=== PATIENT | male | born 1950 | race Caucasian/White ===

== ENCOUNTER 2017-03-27 18:29 | Emergency (ER) | payer MEDICARE ==
--- NOTE | 2017-03-27 19:16 | ER PHYSICIAN DOCUMENTATION ---
Physician Documentation [facility] Name:Gisela Calloway Age:67 yrs Sex:Male :1950 Arrival Date:03/27/2017 Time:18:29 Bed6 Private MD: Joby Helms Disposition: 03/27/17 18:58 Discharged to Home/Self Care. Impression: Constipation. - Condition is Good. - Discharge Instructions: Constipation - FECAL IMPACTION, Treated. - Prescriptions for Colace 100 mg Oral Tablet - take 1 tablet by ORAL route every 12 hours; 14 tablet. - Medical Reconciliation form form. - Follow up: Private Physician; When: As needed; Reason: Recheck today's complaints. - Problem is new. - Symptoms have improved. HPI: 03/27 19:16 This 67 yrs old Male presents to ER via Private Vehicle with complaints of be Constipation. 19:16 The patient presents with abdominal distention that is diffuse. small hard BM's past 24 be hrs. Onset: The symptoms/episode began/occurred gradually, yesterday. The symptoms do not radiate. Associated signs and symptoms: Pertinent negatives: chest pain, nausea, vomiting. This patient does not have any risk factors related to abdominal pain. Historical: - Allergies: PENICILLINS; - Home Meds: 1. None - PMHx: None; - PSHx: None; - Tetanus: unknown. - Ebola Screening: : Patient negative for fever greater than or equal to 101.5 degrees Fahrenheit, and additional compatible Ebola Virus Disease symptoms. Patient denies exposure to infectious person. Patient denies travel to an Ebola-affected area in the 21 days before illness onset. No symptoms or risks identified at this time. . - Immunization history: Flu Vaccine unknown. - Social history: Smoking status: Patient uses tobacco products, light tobacco smoker. ROS: 19:16 Abdomen/GI: Positive for constipation, abdominal distension, Negative for abdominal be pain, nausea, vomiting, diarrhea. 19:16 All other systems are negative. Exam: 19:16 Abdomen/GI: Palpation: abdomen is soft and non-tender, in all quadrants, mass, that is be hard, of the left lower quadrant, Rectal exam: Prostate: normal, rectal tone normal, fecal impaction, that is moderate, disimpacted w/o difficulty. Vital Signs: 18:37 BP 151 / 81; Pulse 130; Resp 18; Temp 98.8(O); Pulse Ox 95% ; Weight 92.99 kg (R); tg Height 5 ft. 7 in. (170.18 cm) (R); Pain 6/10; 18:37 Body Mass Index 32.11 (92.99 kg, 170.18 cm) tg MDM: 18:32 Patient medically screened. wi 18:58 Patient medically screened. wi 19:14 Differential diagnosis: Irritable bowel syndrome, constipation. Data reviewed: vital be signs, nurses notes, old medical records, digitally disimpacted w/o difficulty; patient tolerated well, and as a result, I will discharge patient, colace as needed, push water and an apple daily. 19:21 ECG:. be 20:07 EKG attached lp 03/27 20:06 Order name: 12-lead EKG; Complete Time: 20:06 tg EC:21 Rate is 123 beats/min. Rhythm is regular, Sinus tachycardia with No ectopy. QRS Moore is be Normal. TX interval is normal. QRS interval is normal. QT interval is normal. No Q waves. T waves are Normal. No ST changes noted. Clinical impression: Sinus tachycardia and No evidence of ischemia. Interpreted by me. Dispensed Medications: No medications were administered Signatures: Wellington Nvearez RN RN Amanda Alvarado RN RN Carroll Carrero MD MD wi Joby Dailey MD MD be
--- NOTE | 2017-03-27 19:16 | ER NURSING DOCUMENTATION ---
Nurse's Notes [facility] Name:Gisela Calloway Age:67 yrs Sex:Male :1950 Arrival Date:03/27/2017 Time:18:29 Bed6 Private MD: Diagnosis:Constipation Presentation: 03/27 18:33 Acuity: YANIRA 4 tg 18:34 Presenting complaint: Patient states: Constipation- last BM yesterday, unable to go tg today despite urge since 1PM. Transition of care: patient was not received from another setting of care. 18:34 Method Of Arrival: Private Vehicle tg Triage Assessment: 18:43 General: Appears well developed, well nourished, well groomed, Behavior is anxious. tg 18:53 General: Appears Behavior is anxious. Pain: Denies pain. Neuro: Level of Consciousness tg is awake, alert. Cardiovascular: Capillary refill < 3 seconds. Respiratory: Respiratory effort is even, unlabored. GI: Reports constipation. Derm: Skin is clammy, Skin is pale. Historical: - Allergies: PENICILLINS; - Home Meds: 1. None - PMHx: None; - PSHx: None; - Tetanus: unknown. - Ebola Screening: : Patient negative for fever greater than or equal to 101.5 degrees Fahrenheit, and additional compatible Ebola Virus Disease symptoms. Patient denies exposure to infectious person. Patient denies travel to an Ebola-affected area in the 21 days before illness onset. No symptoms or risks identified at this time. . - Immunization history: Flu Vaccine unknown. - Social history: Smoking status: Patient uses tobacco products, light tobacco smoker. Screenin:41 Infectious Disease Risk Unable to Obtain. Abuse screen: Denies threats or abuse. Denies tg injuries from another. Nutritional screening: No deficits noted. Assessment: 18:55 Reassessment: Pt reports that he began to feel very anxious once he made the decision tg to come to the ED. Does not usually feel anxious, but has had a lot of difficult times at hospitals (with his mother as the patient, not himself as the patient). . Vital Signs: 18:37 BP 151 / 81; Pulse 130; Resp 18; Temp 98.8(O); Pulse Ox 95% ; Weight 92.99 kg (R); tg Height 5 ft. 7 in. (170.18 cm) (R); Pain 6/10; 18:37 Body Mass Index 32.11 (92.99 kg, 170.18 cm) tg ED Course: 18:31 Patient arrived in ED. ama 18:32 Carroll Carrero MD is Attending Physician. hi 18:33 Triage completed. tg 18:34 Wellington Nevarze RN is Primary Nurse. tg 18:41 Valuables Remains with patient. tg 18:47 EKG done. (by ED staff). Reviewed by Joby Dailey MD. tg 19:02 Attending Physician role handed off by Carroll Carrero MD be 19:02 Joby Dailey MD is Attending Physician. be 20:05 Primary Nurse role handed off by Wellington Nevarez RN tg 20:07 EKG attached lp Administered Medications: No medications were administered Outcome: 18:58 Discharge ordered by . be 19:14 Discharged to home ambulatory. tg 19:14 Condition: stable 19:14 Discharge Assessment: Patient awake, alert and oriented x 3. No cognitive and/or functional deficits noted. Patient verbalized understanding of disposition instructions. Pt had a BM after disimpaction by Dr. Dailey. Pt's color/skin is now PWD 19:14 Instructed on discharge instructions, follow up and referral plans. medication usage, Prescriptions given X 1. 19:15 Patient left the ED. tg 20:06 Patient left the ED. tg Signatures: Wellington Nevarez RN RN Amanda Alvarado RN RN Carroll Go MD MD sc Elliott, Brian, MD MD be Mathieu Paniagua, Reg Reg ama
== END 2017-03-27 20:07 | disposition home or self-care (01) ==
LOC: ER 18:29
DX: K59.00 Constipation, unspecified (principal); R00.0 Tachycardia, unspecified; Z72.0 Tobacco use
CPT/HCPCS: 93005; 99283